=== PATIENT | female | born 1975 | race American Indian/Alaskan Native ===

== ENCOUNTER 2016-06-20 16:36 | Emergency (ER) | payer BC ==
[2016-06-20 17:22] VITALS: BP 129/76; PULSE 97; RESP 18; TEMP 98.2; O2SAT 100
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
== END 2016-06-20 20:53 | disposition home or self-care (01) ==
LOC: ED 16:36 → MERGE 16:36 → ED 20:53
DX: R51 Headache (principal); S09.90XA Unspecified injury of head, initial encounter; Y04.2XXA Assault by strike against or bumped into by another person, initial encounter